=== PATIENT | male | born 1980 | race Caucasian/White ===

== ENCOUNTER 2018-09-21 18:31 | Emergency (ER) | payer SELFPAY ==
[~2018-09-21] VITALS: Ht 167.6 cm; Wt 85.7 kg
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
[2018-09-21] MEDS ORDERED: IBUPROFEN 600 MG TABLET PO ONE ×2 (19:21→19:30)
[2018-09-21 19:33] VITALS: BP 146/99
--- NOTE | 2018-09-21 19:34 | NUR ---
Patient discharged to home in stable condition. Written and verbal after care instructions given. Patient verbalizes understanding of instruction AND RX. PT AMBULATED OUT WITH A STEADY GAIT. VSS.
== END 2018-09-21 19:34 | disposition home or self-care (01) ==
LOC: ER 18:36
DX: S16.1XXA Strain of muscle, fascia and tendon at neck level, initial encounter (principal); S39.012A Strain of muscle, fascia and tendon of lower back, initial encounter; F17.200 Nicotine dependence, unspecified, uncomplicated; Z98.890 Other specified postprocedural states; V49.49XA Driver injured in collision with other motor vehicles in traffic accident, initial encounter; Y93.89 Activity, other specified; Y92.413 State road as the place of occurrence of the external cause; Y99.8 Other external cause status